=== PATIENT | female | born 1970 | race Caucasian/White ===

== ENCOUNTER → 2023-09-25 15:30 | Outpatient (REF) | payer BC, SELFPAY | LOC: HWWDC 15:30 | PROVIDERS: ATTENDING PHYSICIAN Family Medicine | DX: Z12.31 Encounter for screening mammogram for malignant neoplasm of breast (principal) | CPT/HCPCS: 77063; 77067 ==

== ENCOUNTER → 2023-10-01 08:55 | Outpatient (REF) | payer BC, SELFPAY | LOC: WDC 08:55 | PROVIDERS: ATTENDING PHYSICIAN Family Medicine | DX: R92.8 Other abnormal and inconclusive findings on diagnostic imaging of breast (principal) | CPT/HCPCS: 76642 ==

== ENCOUNTER → 2023-10-27 13:40 | Outpatient (REF) | payer BC, SELFPAY | LOC: HWRAD 13:40 | PROVIDERS: ATTENDING PHYSICIAN Family Medicine | DX: E04.2 Nontoxic multinodular goiter (principal) | CPT/HCPCS: 76536 ==

== ENCOUNTER 2025-01-22 23:06 | Emergency (ER) | payer BC, SELFPAY ==
[2025-01-22 23:16] VITALS: BP 130/82
[2025-01-23 00:02] VITALS: BP 124/80
[2025-01-23 00:05] VITALS: BMI 22.0
[2025-01-23 00:58] VITALS: BP 141/81
[2025-01-23 01:10] LABS: Hematocrit 40.2 % (37.0-47.0); Hemoglobin 14.2 g/dL (12.0-16.0); Mean Corp Hgb Conc. 35.3 g/dL (33.0-37.0); Mean Corpuscular Volume 88.4 fL (81.0-99.0); Nucleated Red Blood Cells % 0 %; Platelet Count 259 10^3/uL (130-400); Red Cell Dist. Width 12.0 % (11.5-14.5)
[2025-01-23 01:23] LABS: ALT (SGPT) 36 U/L (0-35); AST (SGOT) 42 U/L (14-36); Albumin 4.6 g/dl (3.5-5.0); Alkaline Phosphatase 76 U/L (38-126); Blood Urea Nitrogen 18 mg/dl (7-17); Calcium 10.1 mg/dl (8.4-10.2); Carbon Dioxide 32 mmol/L (22-30); Chloride 104 mmol/L (98-107); Estimated Creatinine Clearance 64 ml/min; Glucose 109 mg/dl (70-99); Potassium 3.7 mmol/L (3.5-5.1); Sodium 141 mmol/L (135-145); Total Protein 7.6 g/dl (6.3-8.2); eGFR > 60.00
--- NOTE | 2025-01-23 01:37 | ED.GENMED ---
History of Present Illness
<Jamil Martínez MD, Resident - Last Filed: 01/23/25 06:05>
General
Chief Complaint: Facial Problem
Source: patient
Time Seen by Provider: 01/23/25 01:13
History of Present Illness
History of Present Illness:
patient is a 54-year-old female who presents to the emergency department with sided facial weakness. She has a history of asthma and has had varicella-zoster infection as a child in the past. Patient was in her normal state of health until the
evening prior to her presentation where she noticed that her left side of her face was not moving as it usually does while she was brushing her teeth. Scratch her face or smile as she usually does and could not raise her eyebrow or close her eye
normally on the left side. She is able to walk as she usually does and ask and coordinate her body movements as she usually does. Sensation is preserved and unaffected. Patient denies any shortness of breath, chest tightness, nausea, vomiting,
diarrhea, abnormal urine, or bloody stool. She has not traveled outside the state recently nor has she had any recent illnesses.
Past History
<Jamil Martínez MD, Resident - Last Filed: 01/23/25 06:05>
Past History
ED Past Medical History: None
ED Past Surgical History: None
Patient has exhibited threatening behavior?: No
Social History
Tobacco: Non-smoker
Alcohol: None
Drug: None
Personal:
Living: alone
Employment: Employed
Review of Systems
<Jamil Martínez MD, Resident - Last Filed: 01/23/25 06:05>
Review of Systems
Constitutional: Reports other ( Left-sided facial weakness)
EENT: Reports no symptoms
Respiratory: Reports no symptoms
Cardiac: Reports no symptoms
ABD/GI: Reports no symptoms
: Reports no symptoms
Musculoskeletal: Reports no symptoms
Skin: Reports no symptoms
Neurological: Reports no symptoms
Endocrine: Reports no symptoms
Hematologic/Lymphatic: Reports no symptoms
Psychiatric: Reports no symptoms
Phy Exam
<Jamil Martínez MD, Resident - Last Filed: 01/23/25 06:05>
General Physical Exam
General Presentation: well appearing and no apparent distress
General age: appears stated age
General Skin: warm and dry
General Habitus: normal
General Mental: alert
General Hydration: appears well hydrated
Cardiovascular Exam
Cardiovascular Exam: regular rate/rhythm, no edema, no gallop, no JVD and no murmur
Pulmonary Exam
Pulmonary Exam: lungs clear, no respiratory distress, no rales, chest non tender, no crackles, no rhonchi, no stridor, no wheezing and no cough
Neurological Exam
Neurological Exam: alert, oriented x3, no motor deficits ( left-sided facial nerve weakness, sensation preserved), normal reflexs and motor weakness ( left-sided facial nerve weakness, sensation preserved)
Musculoskeletal Exam
Musculoskeletal Exam: full ROM
Course
<Jamil Martínez MD, Resident - Last Filed: 01/23/25 06:05>
Orders/Labs/Results
Orders:
Orders
01/23/25 00:59
CMP [Comprehensive Metabolic Panel] Urgent
Complete Blood Count/With Diff Urgent
Lyme Progressive Urgent
Sed Rate [Erythrocyte Sed Rate] Urgent
01/23/25 01:46
Prednisone [Deltasone] 40 mg PO NOW STA
Valacyclovir HCl [Valtrex] 1,000 mg PO NOW STA
Abnormal Lab Results
01/23/25
00:59
MCH 31.2 H pg
(27.0-31.0)
Absolute Monos (auto) 0.7 H 10^3/uL
(0.1-0.6)
Carbon Dioxide 32 H mmol/L
(22-30)
BUN 18 H mg/dl
(7-17)
Glucose 109 H mg/dl
(70-99)
AST 42 H U/L
(14-36)
ALT 36 H U/L
(0-35)
01/23/25 00:59
01/23/25 00:59
Vital Signs
Initial and Last Documented VS:
Initial Vital Signs
Temp Pulse Resp BP Pulse Ox
97.5 F 82 20 130/82 100
01/22/25 23:16 01/22/25 23:16 01/22/25 23:16 01/22/25 23:16 01/22/25 23:16
Last Documented Vital Signs
Temp Pulse Resp BP Pulse Ox
97.5 F 82 23 126/76 100
01/22/25 23:16 01/23/25 01:58 01/23/25 01:58 01/23/25 02:00 01/23/25 01:37
<Kait Marques, DO - Last Filed: 01/23/25 01:55>
Orders/Labs/Results
Orders:
Orders
01/23/25 00:59
CMP [Comprehensive Metabolic Panel] Urgent
Complete Blood Count/With Diff Urgent
Lyme Progressive Urgent
Sed Rate [Erythrocyte Sed Rate] Urgent
01/23/25 01:46
Prednisone [Deltasone] 40 mg PO NOW STA
Valacyclovir HCl [Valtrex] 1,000 mg PO NOW STA
Abnormal Lab Results
01/23/25
00:59
MCH 31.2 H pg
(27.0-31.0)
Absolute Monos (auto) 0.7 H 10^3/uL
(0.1-0.6)
Carbon Dioxide 32 H mmol/L
(-30)
BUN 18 H mg/dl
(7-17)
Glucose 109 H mg/dl
(70-99)
AST 42 H U/L
(14-36)
ALT 36 H U/L
(0-35)
01/23/25 00:59
01/23/25 00:59
Vital Signs
Initial and Last Documented VS:
Initial Vital Signs
Temp Pulse Resp BP Pulse Ox
97.5 F 82 20 130/82 100
01/22/25 23:16 01/22/25 23:16 01/22/25 23:16 01/22/25 23:16 01/22/25 23:16
Last Documented Vital Signs
Temp Pulse Resp BP Pulse Ox
97.5 F 82 23 126/76 100
01/22/25 23:16 01/23/25 01:58 01/23/25 01:58 01/23/25 02:00 01/23/25 01:37
<Jamil Martínez MD, Resident - Last Filed: 01/23/25 06:05>
*Pulse Oximetry
SaO2: 100
Oxygen Mode of Delivery: Room air
Patient hypoxic: no
*Critical Care Note
Total Time (30-74mins, 75-104mins- exclusive of procedures): 60
<Jamil Martínez MD, Resident - Last Filed: 01/23/25 06:05>
Update Note
Update Note:
Problem List:
Left-sided facial weakness with sensation intact
Plan:
Valtrex
protective eye patch
Lyme's disease screening
Differential Diagnoses:
Acute Morton's palsy
CVA
TIA
Radiology: not applicable
EKG: not applicable
Labs:
CBC and BMP unremarkable
Lyme's disease panel pending
Updates:
patient has acute left-sided facial weakness with preserved sensation. Patient is able to frown, raise her eyebrow, and smile but is acutely weak compared to her right side. Presentation correlates with acute Morton's palsy. Hx of
varicella-zoster infection in childhood received her shingles vaccine within the last few years. Education and supportive counseling provided at the bedside.
Will give patient Valtrex and an eye patch to protect her eye at night while she sleeps.
Patient believes that she is ready to be discharged and would like to be discharged at this time. There are no barriers that would impede the patient from being safely discharged.
ED Attending Note
<Jamil Martínez MD, Resident - Last Filed: 01/23/25 06:05>
-
Portions of this chart may have been created with voice recognition software.� Occasional wrong word or��sound alike� substitutions may have occurred due to the inherent limitations of voice recognition software.
<Kait Marques DO - Last Filed: 01/23/25 01:55>
ED Attending Note
Patient seen and examined by attending physician: Yes
I performed a history and physical exam of patient and discussed management with resident, I reviewed resident's note and agree with documented findings and plan of care.: Yes
ED Attending Note:
54-year-old woman with no significant past medical history presents tonight after noticing some left facial droop and mild numbness to the left side of her face as well as mild irritation of her left eye and noting some difficulty completely closing
her left eye.
No history of similar episodes in the past. No other associated symptoms.
54-year-old woman appears her stated age, bright and alert, pleasant, appears in no acute distress.
HEENT: Mild left facial droop noted involving left forehead and mild left upper lid lag. Gross sensation intact. Posterior pharynx is clear. Tongue is midline. No rash.
Neck is supple, nontender.
Neuro:. Mild left facial droop involving left forehead and mild upper lid lag on the left. No other neurodeficits.
History and exam consistent with Morton's palsy. No rash appreciated.
Labs are unremarkable.
Patient has had Shingrix vaccination in the past however must consider herpes zoster and thus will initiate a course of Valtrex. Will initiate prednisone taper.
Must also consider Lyme's disease. Lyme titer is pending.
Recommend supportive measures including Lacri-Lube and soft eye patch to left eye at nighttime.
Prompt follow-up with PCP for recheck.
Discharge Plan
Departure
Patient Disposition: Home (Routine Discharge)
Date of Disposition: 01/23/25
Time of Disposition: 01:47
Patient with high blood pressure during this ER visit?: No
Condition: Good
Discharge Problem:
Left-sided Morton's palsy
Instructions: Morton's Palsy (DC)
Prescriptions:
New
valacyclovir [Valtrex] 1 gram tablet
1,000 mg PO TID Qty: 20 0RF
prednisone 10 mg Tablet
See Rx Instructions .ROUTE .COMPLEX Qty: 30 0RF
Rx Instructions:
Take By Mouth:
40 mg daily x3 days, 30 mg daily x3 days,
20 mg daily x3 days, 10 mg daily x3 days.
Referrals:
Hillary Arriaga DO [Family Provider, Family Practice] - Call in 1-3 days for appt
Interventions
Interventions:
*Risk Screen - Suicide Last Done: 01/22/25 23:16
*General Assessment Last Done: 01/23/25 00:06
*Neglect/Abuse Screening Last Done: 01/22/25 23:16
*ED- Fall Risk Assessment Last Done: 01/23/25 00:06
*ED COVID-19 Vaccine History Last Done: 01/23/25 00:06
*Nursing Disposition Last Done: 01/23/25 02:15
ED- Neurological Assessment Last Done: 01/23/25 00:07
ED-Skin Assessment Last Done: 01/23/25 00:07
Discharge Date and Time
Discharge Date/Time: 01/23/25 02:33
Print Language: DIVEHI
[2025-01-23] MEDS: VALTREX 1000 MG PO (01:56)
[2025-01-23] MEDS: DELTASONE 40 MG PO (01:56)
[2025-01-23 02:00] VITALS: BP 126/76
[2025-01-25 14:06] LABS: Lyme Antibody Screen, EIA Negative (Negative)
== END 2025-01-23 02:33 | disposition home or self-care (01) ==
LOC: EMR 23:06
PROVIDERS: EMERGENCY PHYSICIAN Emergency Medicine; FAMILY PHYSICIAN Family Medicine
DX: G51.0 Bell's palsy (principal); J45.909 Unspecified asthma, uncomplicated
CPT/HCPCS: 99283; 80053; 85025; 85652; 86618

== ENCOUNTER → 2025-03-15 09:14 | Outpatient (REF) | payer BC, SELFPAY | LOC: HWRAD 09:14 | PROVIDERS: ATTENDING PHYSICIAN Family Medicine | DX: E04.2 Nontoxic multinodular goiter (principal) | CPT/HCPCS: 76536 ==

== ENCOUNTER → 2025-04-26 11:37 | Outpatient (REF) | payer BC, SELFPAY | LOC: WDC 11:37 | PROVIDERS: ATTENDING PHYSICIAN Family Medicine | DX: Z12.31 Encounter for screening mammogram for malignant neoplasm of breast (principal) | CPT/HCPCS: 77063; 77067 ==

== ENCOUNTER 2025-05-15 05:00 | Emergency (ER) | payer BC, SELFPAY ==
[2025-05-15 05:06] VITALS: BP 139/93
[2025-05-15 06:13] LABS: Urine Character Clear (Clear)
[2025-05-15 06:49] LABS: Urine Red Blood Cell 0-2 /HPF (0-2); Urine White Cell 40-50 /HPF (0-5)
--- NOTE | 2025-05-15 08:56 | ED.GENMED ---
History of Present Illness
General
Chief Complaint: Urinary Symptoms
Time Seen by Provider: 05/15/25 08:51
History of Present Illness
History of Present Illness:
54-year-old female presents to the emergency department for evaluation of urinary urgency and frequency beginning overnight last night. Also reports scant blood in the urine. No dysuria. No fever, chills, sweats, nausea, vomiting, diarrhea, or
flank pain. Denies concern for STI. No vaginal discharge
Past History
Past History
ED Past Medical History: None
ED Past Surgical History: None
Patient has exhibited threatening behavior?: No
Social History
Tobacco: Non-smoker
Alcohol: None
Drug: None
Personal:
Living: alone
Employment: Employed
Review of Systems
Review of Systems
Allergies reviewed?: Yes
All Other Systems: ROS reviewed and negative except as documented in HPI and ROS
Phy Exam
Physical Exam
Physical Exam:
GEN: Well appearing, NAD, WDWN
HEENT: Oral mucosa moist, no scleral icterus
Cardiac: Regular rate
Lung: No respiratory distress, no tachypnea
Abdomen: Soft, grossly nontender, no CVA tenderness
MSK: No gross deformity or injuries
Skin: Good color, no pallor or jaundice, no rashes
Neuro: AO x3, moves all extremities freely
Psych: Calm, cooperative
Course
Orders/Labs/Results
Orders:
Orders
05/15/25 05:38
Urinalysis Reflex To Culture Urgent
Date Specimen was Collected: 05/15/25
Time Specimen was Collected: 05:11
Urine Microscopic Reflex Cult Urgent
Urine Culture Urgent
HUNG Source: U
Specimen Description:
Date Specimen was Collected: 05/15/25
Time Specimen was Collected: 05:11
Abnormal Lab Results
05/15/25
05:38
Ur Occult Blood Reflex 4+ A
(Negative)
Leukocyte Esterase Rfl 3+ A
(Negative)
Urine WBC (Reflex) 40-50 A /HPF
(0-5)
Urine Bacteria (Reflex) Few A
(Negative)
Urine Albumin (Reflex) 1+ A
(Neg - Trace)
Vital Signs
Initial and Last Documented VS:
Initial Vital Signs
Temp Pulse Resp BP Pulse Ox
98 F 107 20 139/93 100
05/15/25 05:06 05/15/25 05:06 05/15/25 05:06 05/15/25 05:06 05/15/25 05:06
Last Documented Vital Signs
Temp Pulse Resp BP Pulse Ox
98.6 F 82 20 133/84 100
05/15/25 09:04 05/15/25 09:04 05/15/25 09:04 05/15/25 09:04 05/15/25 09:04
MDM/Problems Addressed
MDM/Problems Addressed:
Symptoms and urinalysis consistent with acute UTI, doubt pyelonephritis given lack of CVA tenderness. Clinically well-appearing. Suitable for outpatient therapy
*Pulse Oximetry
SaO2: 100
Oxygen Mode of Delivery: Room air
Patient hypoxic: no
*Critical Care Note
Total Time (30-74mins, 75-104mins- exclusive of procedures): Not Applicable
ED Attending Note
-
Portions of this chart may have been created with voice recognition software.� Occasional wrong word or��sound alike� substitutions may have occurred due to the inherent limitations of voice recognition software.
Discharge Plan
Departure
Patient Disposition: Home (Routine Discharge)
Date of Disposition: 05/15/25
Time of Disposition: 08:57
Patient with high blood pressure during this ER visit?: No
Discharge Problem:
Acute lower UTI
Instructions: Urinary Tract Infection, Adult (DC)
Prescriptions:
New
nitrofurantoin monohyd/m-cryst [Macrobid] 100 mg capsule
100 mg PO BID Qty: 10 0RF
No Action
valacyclovir [Valtrex] 1 gram tablet
1,000 mg PO TID Qty: 20 0RF
Referrals:
Hillary Arriaga, DO [Family Provider, Family Practice]
Activity Restrictions/Additional Instructions:
Use over the counter Azo or Uricalm (phenazopyridine) to reduce your symptoms. Only use today or tomorrow until antibiotics begin to work. This will turn your urine deep orange
Return if you develop fevers
Interventions
Interventions:
*General Assessment Last Done: 05/15/25 05:06
*Neglect/Abuse Screening Last Done: 05/15/25 05:06
*ED COVID-19 Vaccine History Last Done: 05/15/25 05:06
*ED Influenza Vaccine History Last Done: 05/15/25 05:06
[facility] Fall Risk Assessment Tool Last Done: 05/15/25 09:04
*Risk Screen - Suicide (C-SSRS) Last Done: 05/15/25 05:06
*Nursing Disposition Last Done: 05/15/25 09:10
ED-Female Genitourinary Assessment Last Done: 05/15/25 09:04
Discharge Date and Time
Discharge Date/Time: 05/15/25 09:11
Print Language: DIVEHI
[2025-05-15 08:57] VITALS: BP 133/84
[2025-05-15 09:04] VITALS: BP 133/84; BMI 23.5
== END 2025-05-15 09:11 | disposition home or self-care (01) ==
LOC: EMR 05:00
PROVIDERS: Emergency Medicine; EMERGENCY PHYSICIAN Emergency Medicine; FAMILY PHYSICIAN Family Medicine
DX: N39.0 Urinary tract infection, site not specified (principal); B96.20 Unspecified Escherichia coli [E. coli] as the cause of diseases classified elsewhere
CPT/HCPCS: 99283; 81003; 81015; 87077; 87086; 87186